=== PATIENT | female | born 2000 | race Hispanic/Latino ===

== ENCOUNTER 2024-04-19 13:55 | Emergency (ER) | payer SELFPAY ==
[2024-04-19 16:51] LABS: #Basophils 0.04 10x3/uL (0.0-0.2); %Basophils 0.5 % (0.0-1.0); %Eosinophils 1.6 % (0.0-10.0); %Lymphocytes 27.8 % (21.0-51.0); %Monocytes 5.8 % (0.0-10.0); %Neutrophils 64.1 % (42.0-75.0); Hematocrit 39.4 % (36.0-47.0); Hemoglobin 13.8 g/dL (12.0-16.0); Mean Corpuscular Hemoglobin 31.5 pg (27.0-31.0); Platelet Count 315 10x3/uL (130-400); RBC Distribution Width 11.2 % (11.5-14.5); Red Blood Cell (RBC) Count 4.38 mill/uL (4.20-5.40)
[2024-04-19 17:27] LABS: HCG, Total Quant Less than 2.42 mIU/mL (See Ranges)
[2024-04-19 17:30] LABS: Hep B Core IgM Index 0.09 S/CO (0-0.79); Hepatitis B Core IgM Abs NONREACTIVE S/CO (NonReactive)
[2024-04-19 17:31] LABS: HBsAg Index 0.23 S/CO (0-0.99); HIV (1/2) Antibody/Antigen NONREACTIVE (NonReactive); HIV 1/2 INDEX 0.05 S/CO (<1.00); Hep B Surf Ag NONREACTIVE S/CO (NonReactive)
[2024-04-19 17:32] LABS: Hep A IgM AB NONREACTIVE (NonReactive); Hep A IgM S/CO 0.35 S/CO (0-0.79); Hep C IgG Ab NONREACTIVE S/CO (NonReactive); Hep C Index 0.08 S/CO (0-0.79)
[2024-04-19 18:21] LABS: ALT (SGPT) 31 U/L (Less than 34); AST (SGOT) 27 U/L (11-34); Albumin 4.1 g/dL (3.1-4.5); Alkaline Phosphatase 59 U/L (40-110); Anion Gap 13 mmol/L (10-20); BUN (Urea Nitrogen) 9 mg/dL (7.0-18.7); Bilirubin, Total 0.4 mg/dL (0.3-1.2); Calc. Creatinine Clearance 0 mL/min (70-130); Calcium 9.2 mg/dL (7.8-10.44); Carbon Dioxide 19 mmol/L (22-29); Chloride 110 mmol/L (98-107); Estimated GFR 125; Globulin 3.5 g/dL (2.4-3.5); Glucose 95 mg/dL (70-105); Lipase 19 U/L (8-78); Potassium 4.3 mmol/L (3.5-5.1); Protein, Total 7.6 g/dL (6.0-8.3); Sodium 138 mmol/L (136-145)
[2024-04-19] MEDS ORDERED: Ibuprofen 800 MG TAB ONE (18:35)
[2024-04-19 19:21] LABS: Syphilis Antibody Nonreactive (Nonreactive); Syphilis Antibody Index 0.03 S/CO (<1.00 Non-Reactive)
[2024-04-19 20:48] LABS: Bacteria/HPF None Seen HPF (None Seen); Bilirubin Negative (Negative); Blood, Urine Trace (Negative); CAUTI Indications for Culture Pelvic or flank pain; Clarity Clear (Clear); Glucose, Urine (Dipstick) Normal (Negative); Ketone, Urine Negative (Negative); Leukocyte Negative Leu/uL (Negative); Nitrite Negative (Negative); Protein, Urine (Dipstick) Negative (Neg-Trace); RBC/HPF 0-3 HPF (0-3); Specific Gravity, Urine 1.024 (1.002-1.036); Squamous Epithelial 0-3 HPF (0-3); Urobilinogen Normal mg/dL (Less than 2); WBC/HPF 0-3 HPF (0-3)
[2024-04-19 20:49] LABS: Pregnancy Test - Urine (BHCG) Negative (Negative); Pregu Control Background? CLEAR/WHITE (CLR/WHITE); Pregu Control Bar Appear? YES (CONTROL BAR); Specific Gravity 1.024 (1.002-1.036); Urine Culture Reflex No No
== END 2024-04-19 21:21 | disposition home or self-care (01) ==
LOC: ERS 13:55
DX: R10.2 Pelvic and perineal pain (principal)
CPT/HCPCS: 36415; 76801; 80053; 80074; 81001; 81025; 83690; 84702; 85025; 86780; 87389

== ENCOUNTER 2024-05-13 14:01 | Emergency (ER) | payer SELFPAY ==
[2024-05-13] MEDS ORDERED: Lidocaine 1% PF 5 ML VIAL ONE (17:43)
[2024-05-13] MEDS ORDERED: cefTRIAXone (ROCEPHIN) 500 MG VIAL ONE (17:43)
[2024-05-14 08:33] LABS: Chlamydia by PCR, Vaginal Swab Not Detected (NotDetected); GC by PCR, Vaginal Swab Not Detected (NotDetected); Tric.vaginalis PCR,Vaginal Sw Not Detected (NotDetected)
== END 2024-05-13 17:55 | disposition home or self-care (01) ==
LOC: ERS 14:01
DX: N76.0 Acute vaginitis (principal)
CPT/HCPCS: 87480; 87491; 87510; 87591; 87660; 87661; 96372; 99283; J0696